=== PATIENT | female | born 1970 ===

== ENCOUNTER → 2018-04-13 06:40 | Outpatient (CLI) | payer OTHER | END | disposition home or self-care (01) | LOC: LAB 06:40 | DX: E03.8 Other specified hypothyroidism (principal); D64.89 Other specified anemias; R74.0 Nonspecific elevation of levels of transaminase and lactic acid dehydrogenase [LDH] ==

== ENCOUNTER 2019-11-30 08:53 | Outpatient (CLI) | payer OTHER | END 2019-11-30 08:56 | disposition home or self-care (01) | LOC: RX STUDY 08:53 | DX: R13.12 Dysphagia, oropharyngeal phase (principal) ==